=== PATIENT | male | born 1990 | race Caucasian/White ===

== ENCOUNTER 2021-04-16 13:57 | Emergency (ER) | payer OTHER ==
[2021-04-16] MEDS ORDERED: methylPREDNISolone Sodium Succinate 125 MG/2 ML SDV IV ONE (14:20)
[2021-04-16] MEDS ORDERED: diphenhydrAMINE 50 MG/ML SDV IVPUSH ONE (14:20)
[2021-04-16] MEDS ORDERED: Sodium Chloride 0.9% 1,000 ML IV SCH (14:30)
--- NOTE | 2021-04-16 15:31 | EDM.PDOC ---
ED HPI GENERAL MEDICAL PROBLEM - General Chief Complaint: Bite:Animal, Insect Stated Complaint: BEE STING Time Seen by Provider: 04/16/21 14:19 Source of Information: Reports: Patient History Limitations: Reports: No Limitations - History of Present Illness INITIAL COMMENTS - FREE TEXT/NARRATIVE: 30 yo male presents to the ER following multiple bee stings to his upper body. He has not had previous problems with bee stings. he denies oral edema or SOB. - Related Data Allergies Allergy/AdvReac Type Severity Reaction Status Date / Time No Known Allergies Allergy Verified 04/16/21 14:18 Home Meds: Home Meds Minocycline [Minocin] 50 mg PO BID 04/16/21 [History] Past Medical History - Past Health History Medical/Surgical History: Denies Medical/Surgical History Social & Family History - Tobacco Use Tobacco Use Status *Q: Current Every Day Tobacco User Years of Tobacco use: 5 Packs/Tins Daily: 5 - Recreational Drug Use Recreational Drug Use: No ED ROS GENERAL - Review of Systems Review Of Systems: See Below Constitutional: Denies: Fever, Chills Respiratory: Denies: Shortness of Breath, Wheezing Cardiovascular: Denies: Chest Pain Skin: Reports: Erythema, Urticaria ED EXAM, ANIMAL BITE - Physical Exam Exam: See Below Exam Limited By: No Limitations General Appearance: Alert, WD/WN, No Apparent Distress Head: Atraumatic, Normocephalic Neck: Normal Inspection, Supple, Non-Tender, Full Range of Motion Respiratory/Chest: No Respiratory Distress, Lungs Clear, Normal Breath Sounds. No: Crackles, Rhonchi, Wheezing Cardiovascular: No Murmur, Tachycardia Skin Exam: Normal Color, Warm/Dry, Other (mild erythema and swelling around vector sites. ) Course - Vital Signs Last Recorded V/S: Last Vital Signs Temp 36.8 C 04/16/21 14:23 Pulse 103 H 04/16/21 14:23 Resp 16 04/16/21 14:23 BP 166/93 H 04/16/21 14:23 Pulse Ox 96 04/16/21 14:23 - Orders/Labs/Meds Orders: Active Orders 24 hr Category Date Time Status Sodium Chloride 0.9% [Normal Saline] 1,000 ml Med 04/16/21 14:30 Active IV .BOLUS Medication Orders Sodium Chloride (Normal Saline) 1,000 mls @ 500 mls/hr IV .BOLUS OG Last Admin: 04/16/21 14:29 Dose: 500 mls/hr Documented by: GRACIEMILMINE Meds: Medications Generic Name Dose Route Start Last Admin Trade Name Julia PRN Reason Stop Dose Admin Sodium Chloride 1,000 mls @ 500 mls/hr 04/16/21 14:30 04/16/21 14:29 Normal Saline IV 500 mls/hr .BOLUS OG Administration Discontinued Medications Generic Name Dose Route Start Last Admin Trade Name Julia PRN Reason Stop Dose Admin Diphenhydramine HCl 50 mg 04/16/21 14:20 04/16/21 14:39 Diphenhydramine 50 Mg/Ml Sdv IVPUSH 04/16/21 14:21 50 mg ONETIME ONE Administration Methylprednisolone Sodium Succinate 125 mg 04/16/21 14:20 04/16/21 14:39 Methylprednisolone Sodium Succinate 125 Mg/2 Ml Sdv IV 04/16/21 14:21 125 mg ONETIME ONE Administration - Re-Assessments/Exams Free Text/Narrative Re-Assessment/Exam: 04/16/21 15:35 received IV solumedrol and Benadryl and IV fluids. systemic itching resolved, mild erythema around the vector sites remain Departure - Departure Time of Disposition: 15:37 Disposition: Home, Self-Care 01 Condition: Good Clinical Impression: Bee sting reaction Qualifiers: Encounter type: initial encounter Injury intent: accidental or unintentional Qualified Code(s): T63.441A - Toxic effect of venom of bees, accidental (unintentional), initial encounter - Discharge Information *PRESCRIPTION DRUG MONITORING PROGRAM REVIEWED*: Not Applicable *COPY OF PRESCRIPTION DRUG MONITORING REPORT IN PATIENT FRANKIE: Not Applicable Instructions: Bee, Wasp, or Hornet Sting, Adult Referrals: PCP,None [Primary Care Provider] - Additional Instructions: Benadryl as needed for night time itching, Claritin or zyrtec during the day increase fluid intake with goal 1.5-2 liters per day Sepsis Event Note (ED) - Evaluation Sepsis Screening Result: No Definite Risk - Focused Exam Vital Signs: Vital Signs Temp Pulse Resp BP Pulse Ox 04/16/21 14:23 36.8 C 103 H 16 166/93 H 96 04/16/21 14:17 36.8 C 103 H 16 166/93 H 96 - My Orders Last 24 Hours: My Active Orders 04/16/21 14:30 Sodium Chloride 0.9% [Normal Saline] 1,000 ml IV .BOLUS - Assessment/Plan Last 24 Hours: My Active Orders 04/16/21 14:30 Sodium Chloride 0.9% [Normal Saline] 1,000 ml IV .BOLUS
== END 2021-04-16 15:46 | disposition home or self-care (01) ==
LOC: JP.ED 13:57
DX: T63.441A Toxic effect of venom of bees, accidental (unintentional), initial encounter (principal); Z72.0 Tobacco use
CPT/HCPCS: 96374; 96375; 99282; J1200; J2930; J7030

== ENCOUNTER 2023-04-01 08:09 | Emergency (ER) | payer OTHER | END 2023-04-01 09:25 | disposition home or self-care (01) | LOC: JP.ED 08:09 | DX: L03.114 Cellulitis of left upper limb (principal); F17.210 Nicotine dependence, cigarettes, uncomplicated | CPT/HCPCS: 99283 ==